=== PATIENT | female | born 1945 | race Caucasian/White ===

== ENCOUNTER 2018-11-07 12:09 | Inpatient (IN) ==
[2018-11-07] MEDS ORDERED: CeFAZolin Syr 2,000MG/20 ML 2,000 MG/20 ML SYRINGE IVPB ONE (12:43)
[2018-11-07] MEDS ORDERED: Famotidine 20 MG/2 ML VIAL IVP ONE (12:44)
[2018-11-07] MEDS ORDERED: Ringers Solution, Lactated 1,000 ML IVC SCH (12:45)
[2018-11-07] MEDS ORDERED: Gabapentin 300 MG CAPSULE PO ONE (12:46)
[2018-11-07] MEDS ORDERED: Acetaminophen IV 1,000 MG/100 ML INFUS..BTL IVPB ONE (12:46)
--- NOTE | 2018-11-07 13:13 | Anesthesia Evaluation PreOp ---
Date of Encounter: 11/07/18 Time of Encounter: 13:10 - Past History Planned Operation: Rt Upper Lobectomy Robotic Assisted Cardiac History: HTN, Hyperlipidemia, Other (CAD) Pulmonary History: Former smoker CRIMINAL INVESTIGATIVE AGENT History: Denies Any Significant HX Other Medical History: Diabetes Type II, Thyroid, Other (Anxiety) Anesthesia History: No Prior Anesthetic Complications Alcohol Use: none Drug use: none Medications and Allergies Advanced Calcium Formula Tab 04/23/16 [History] Amitriptyline 04/23/16 [History] Aspirin 04/23/16 [History] Atenolol 04/23/16 [History] Fish Oil 04/23/16 [History] Januvia 04/23/16 [History] Lisinopril 04/23/16 [History] Preservision Areds 2 Softgel 04/23/16 [History] Simvastatin 04/23/16 [History] Sulfamethoxazole/Trimeth DS [Bactrim DS] 1 each PO BID #14 tablet 12/04/17 [Rx] Allergy/AdvReac Type Severity Reaction Status Date / Time glimepiride AdvReac Rash Verified 12/04/17 16:58 metformin AdvReac See Verified 12/04/17 16:58 Comments pioglitazone AdvReac See Verified 12/04/17 16:58 Comments sitagliptin [From Januvia] AdvReac See Verified 12/04/17 16:58 Comments - Meds/Allergy Pre-op Review Medications Reviewed: Yes Allergies Reviewed: Yes Beta Blockers on Current Med List: Yes (Atenolol today 1000) Anesthesia Results - Labs Laboratory Tests 10/28/18 10/29/18 12:45 17:08 Hgb 14.1 Hct 44.6 Plt Count 320 Sodium 136 Potassium 3.8 BUN 28 H Creatinine 0.89 - Imaging EKG: report reviewed (SR) Anesthesia Exam O2 Sat Height 1.63 m Height 1.63 m Weight 67.585 kg Weight 67.585 kg O2 Sat by Pulse Oximetry 98 Vital Signs Temp Pulse Resp BP Pulse Ox 98.3 F 75 18 149/79 98 11/07/18 12:39 11/07/18 12:39 11/07/18 12:39 11/07/18 12:39 11/07/18 12:39 Height: 5'4 Weight: 149 lbs NPO (# of Hours): MN Pain Scale: 0 - HEENT Pupil (Motor): Pupils equal, EOMI Teeth: Normal Oral Opening: Greater than 3 - CRIMINAL INVESTIGATIVE AGENT LOC: Oriented [employer]AL INVESTIGATIVE AGENT Motor: Normal RUE, Normal LUE, Normal RLE, Normal LLE, Normal Face [employer] INVESTIGATIVE AGENT Sensory: Normal: RUE, LUE, RLE, LLE, Face - Cardiac Rhythm: Regular Murmur: None JVD: No Carotid Bruit: No - Pulmonary Breath Sounds: bilateral Clear Respiratory Effort: Symmetrical Anesthesia Assess/Plan ASA Score: 3 (HTN CAD DM) Level of consciousness: Cooperative, Oriented Anesthetic Plan: General Autologous Blood: No Monitoring Plan: Standard Monitors Recovery Plan: PACU (Discussed GA, agrees to proceed)
[2018-11-07] MEDS ORDERED: Ondansetron 4 MG/2 ML VIAL IVP ONE (13:16)
[2018-11-07] MEDS ORDERED: *HR* Promethazine 25 MG/ML VIAL IVP PRN (13:16)
[2018-11-07] MEDS ORDERED: *HR* OxyCODONE Immed Rel 5 MG TABLET PO PRN (13:16)
[2018-11-07] MEDS ORDERED: *HR* Rocuronium Bromide 50 MG/5 ML VIAL ONE (13:19)
[2018-11-07] MEDS ORDERED: *HR* Succinylcholine 200 MG/10 ML VIAL IVP ONE (13:19)
[2018-11-07] MEDS ORDERED: *HR* FentaNYL (PF) 100 MCG/2 ML VIAL ONE ×2 (13:19→16:21)
[2018-11-07] MEDS ORDERED: *HR* Propofol 200 MG/20 ML VIAL IVP ONE (13:19)
[2018-11-07] MEDS ORDERED: Ondansetron 4 MG/2 ML VIAL ONE (13:19)
[2018-11-07] MEDS ORDERED: Dexamethasone 4 MG/ML VIAL ONE (13:19)
[2018-11-07] MEDS ORDERED: Lidocaine -MPF 2% 2 ML VIAL ONE (13:19)
[2018-11-07] MEDS ORDERED: Ketorolac 30 MG/ML VIAL ONE (13:22)
--- NOTE | 2018-11-07 14:03 | History & Physical Report ---
Date of Encounter: 11/07/18 Time of Encounter: 14:02 24 Hour HP Update - Instructions Instructions: If the History and Physical is less than 30 days old and was completed prior to A.M. admission and or procedure and has NOT been updated on calendar day of procedure please complete this update prior to performing procedure. - Update Patient reports changes in Medical Condition: No Changes in examination, assessment, or condition: No Changes in Medication: No Preop tests/diagnostics Reviewed: Yes Pre-Op MRSA Screen: Negative Surgery Remains Indicated: Yes Consent for Planned Operative Procedure(s) Verified: Yes - Pre-Operative Checklist Preoperative Checklist Indicated: Yes Prophylactic Antibiotic Ordered: Yes Home Medications Include Beta Stephanie: Yes Beta Stephanie Taken Today (Day of Surgery): Yes Beta Stephanie Taken Yesterday (Day Prior to Surgery): Yes Is VTE Prophylaxis Indicated?: Yes
[2018-11-07] MEDS ORDERED: *HR* PHENYLEPHRINE 1,000 MCG/10 ML SYRINGE IVP ONE ×2 (14:43→16:39)
--- NOTE | 2018-11-07 16:39 | Operative Note ---
Date of procedure: 11/07/18 Pre-op diagnosis: c34.11 Post-op diagnosis: same Procedure: staging bronchoscopy, robotic dx wedge, lobectomy, node dissection Anesthesia: GETA Local Anesthetics: 0.5% Sensorcaine HCL SubQ (cc) Surgeon: Pablo Sanchez Was there an triage assistant present: No Estimated blood loss (cc): 25 Specimen: wedge and lobe, nodes [id number] Condition: stable Disposition: PACU Procedure in Detail: The patient was brought to the operating room and placed on the operating room table in the supine position. After undergoing general anesthesia with sequential compressive devices on bilateral lower extremities and perioperative antibiotics on board a staging bronchoscopy was performed on the patient for the first time for this new spiculated solid right upper lobe lung mass demonstrating no endoluminal spread compromise extrinsic compression of the tracheobronchial tree. Patient was placed on the operating room table in the left lateral decubitus position with care to pad all pressure points. He was prepped and draped in the usual sterile fashion. Thoracoscopy ports were placed the da Leonila robot was docked. 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 The vein artery fissure and bronchus then divided in sequence with the Covidien staplers. The right upper lobe was removed. He inferior pulmonary ligament mobilized. Lymph nodes were removed from stations 2, 4, 7, 8, 9 and 10. Hemostasis and pneumostasis were excellent paravertebral nerve blocks were performed 2. A 28-Luxembourgish chest tube placed through the most anterior thoracoscopy incision and secured in place with Ethibond suture. Remaining incisions were closed with 0 Vicryl and 4-0 Monocryl subcuticular stitches with dressings being of Steri-Strips and sterile gauze. Patient was extubated and taken to the recovery room breathing spontaneously and hemodynamically stable.
--- NOTE | 2018-11-07 17:10 | Anesthesia Evaluation Post Op ---
Date of Encounter: 11/07/18 Time of Encounter: 17:15 - Vital Signs Vital Signs: Vital Signs/O2 Sat/Glucose, Most Current Temp Pulse Resp BP Pulse Ox 11/07/18 17:05 97.8 F 64 14 94/60 95 11/07/18 16:55 58 12 97/51 99 11/07/18 16:45 57 12 95/44 99 11/07/18 16:35 97.2 F L 52 12 73/34 99 - Lungs Lungs: Clear Ascult./Percussion - Airway Airway: Non-obstructed - Cardiovascular Regular Rate - Mental Status Mental Status: Alert & Oriented, Answers Appropriately - Pain Pain Scale: 0 - Nausea Vomiting Nausea Vomiting: Not Present - Hydration Hydration: Ice chips - Discharge PostOp Status: Transfer Patient to floor
[2018-11-07] MEDS ORDERED: Ondansetron 4 MG/2 ML VIAL IVP PRN (18:59)
[2018-11-07] MEDS ORDERED: 0.9 % Sodium Chloride 1,000 ML IVC SCH (18:59)
[2018-11-07] MEDS ORDERED: *HR* HYDROcodone/Acet 5/325 mg TABLET PO PRN (18:59)
[2018-11-07] MEDS ORDERED: Naloxone 0.4 MG/ML INJ IVP PRN (18:59)
[2018-11-07] MEDS: Ketorolac 15 MG/ML VIAL IVP SCH ×2 (19:33→23:54)
[2018-11-07] MEDS: Ipratropium/Albuterol Neb 3 ML IH SCH ×2 (20:22→23:21)
[2018-11-07] MEDS ORDERED: Famotidine 20 MG TABLET PO SCH (21:00)
[2018-11-07] MEDS: Sennosides/Docusate Sodium TABLET PO SCH (21:04)
[2018-11-07] MEDS: Gabapentin 300 MG CAPSULE PO SCH (21:11)
[2018-11-07] MEDS: *HR* Heparin 5,000 UNIT/ML VIAL SQ SCH (21:12)
[2018-11-08 02:23] LABS: Hematocrit 36.2 % (35.3-44.9); Hemoglobin 11.6 g/dL (11.5-15.4); Mean Corpuscular Hemoglobin 29.3 pg (28.0-33.3); Mean Corpuscular Volume 91.4 fL (83.0-100.0); Mean Platelet Volume 9.5 fL (9.4-12.4); Platelet Count 236 K/mcL (140-400); Red Blood Count 3.96 M/mcL (3.82-4.97); Red Cell Distribution Width 13.3 % (11.5-14.5); White Blood Count 9.9 K/mcL (4.3-11.1)
[2018-11-08 02:40] LABS: BUN/Creatinine Ratio 21 (6-26); Blood Urea Nitrogen 22 mg/dL (8-23); Calcium 8.1 mg/dL (8.6-10.3); Carbon Dioxide 22 mEq/L (23-29); Chloride 105 mEq/L (98-107); Glucose 205 mg/dL (70-105); Iron < 10 mcg/dL (50-170); Magnesium 1.8 mg/dL (1.6-2.6); Osmolality,Calculated 289 (280-300); Potassium 3.9 mEq/L (3.5-5.1); Sodium 135 mEq/L (136-145); Transferrin 201 mg/dL (203-362); eGFR For African Americans > 60 (> 60); eGFR For Non-African Americans 51 (> 60)
[2018-11-08] MEDS: Ipratropium/Albuterol Neb 3 ML IH SCH ×5 (03:51→20:10)
[2018-11-08] MEDS: Ketorolac 15 MG/ML VIAL IVP SCH ×4 (05:35→23:10)
[2018-11-08] MEDS: *HR* Heparin 5,000 UNIT/ML VIAL SQ SCH ×3 (05:37→23:11)
[2018-11-08] MEDS ORDERED: Iron Sucrose Complex 400 MG in 0.9 % Sodium Chloride 250 ML IVPB ONE (08:36)
--- NOTE | 2018-11-08 08:52 | Cardiothoracic Progress Note ---
Date of Encounter: 11/08/18 Time of Encounter: 08:50 - Assessment and plan (1) Cancer of upper lobe of right lung Current Visit: Yes Status: Acute The assessment and plan as outlined above was discussed with the patient and/or family members who expressed understanding and agreement. All questions were answered. replace mg. clamp chest tube at midnight tonight (2) Iron deficiency anemia due to dietary causes Current Visit: Yes Status: Acute The assessment and plan as outlined above was discussed with the patient and/or family members who expressed understanding and agreement. All questions were answered. replace iron today and tomorrow (3) Essential hypertension Current Visit: Yes Status: Acute The assessment and plan as outlined above was discussed with the patient and/or family members who expressed understanding and agreement. All questions were answered. hold lisinopril (4) NIDDY (non-insulin dependent diabetes mellitus in young) Current Visit: Yes Status: Acute The assessment and plan as outlined above was discussed with the patient and/or family members who expressed understanding and agreement. All questions were answered. resume home medications Vital Signs, Last 4 Hours Temp Pulse Resp BP Pulse Ox 11/08/18 08:03 16 93 11/08/18 07:52 98.0 F 90 18 111/56 94 Oxgyen Flow Rate Oxygen Flow Rate (LPM) 0 Clinical Data, last 8 Hours Output, Chest Tube Drainage 0 Amount [Right Mid-Axillary Chest] Output, Urine Amount 800 Weight 11/06/18 11/07/18 11/08/18 23:59 23:59 23:59 Weight 67.585 kg - Physical Examination General: Conversant, No Apparent Distress, Well developed, Well nourished HEENT: Atraumatic Cardiac: Reg Rate and Rhythm Incision: No signs of infection, Dry/intact dressing Chest tubes: Minimal drainage Lungs: Normal Breath Sounds Neuro: Alert and responsive, No focal deficits noted, Cranial nerves intact, Motor nerves intact Abdomen: Soft, Non-tender - Labs 11/08/18 01:51 11/08/18 01:51 Lab Results, Last 24 hours 11/08/18 11/08/18 01:51 01:51 WBC 9.9 Hgb 11.6 Hct 36.2 Plt Count 236 Sodium 135 L Potassium 3.9 Chloride 105 Carbon Dioxide 22 L BUN 22 Creatinine 1.06 Glucose 205 H Calcium 8.1 L Magnesium 1.8 - Imaging Chest Xray: image reviewed Consult Discharge Plan - Plan Referrals: Brianna Lebron DO [Primary Care Provider] -
[2018-11-08] MEDS: Famotidine 20 MG TABLET PO SCH ×2 (09:50→20:06)
[2018-11-08] MEDS: Gabapentin 300 MG CAPSULE PO SCH ×3 (09:50→20:06)
[2018-11-08] MEDS: Sennosides/Docusate Sodium TABLET PO SCH ×2 (09:50→20:06)
[2018-11-09] MEDS: Ipratropium/Albuterol Neb 3 ML IH SCH ×3 (00:01→07:46)
[2018-11-09] MEDS: *HR* Heparin 5,000 UNIT/ML VIAL SQ SCH (06:17)
[2018-11-09] MEDS: Ketorolac 15 MG/ML VIAL IVP SCH (06:17)
[2018-11-09 07:01] VITALS: BP 121/93
[2018-11-09] MEDS: Sennosides/Docusate Sodium TABLET PO SCH (07:57)
[2018-11-09] MEDS: Gabapentin 300 MG CAPSULE PO SCH (07:57)
[2018-11-09] MEDS: Famotidine 20 MG TABLET PO SCH (07:58)
[2018-11-09] MEDS ORDERED: Iron Sucrose Complex 400 MG in 0.9 % Sodium Chloride 250 ML IVPB ONE (08:36)
--- NOTE | 2018-11-09 09:05 | Discharge Summary ---
Orders not resulted at time of discharge: Pending orders 11/07/18 14:56 Surgical Pathology [PTH] Stat Date of Encounter: 11/09/18 Time of Encounter: 08:31 - Discharge Diagnosis (1) Cancer of upper lobe of right lung Priority: Primary Status: Acute - Hospital Course Hospital course: Ms. Schaeffer is a 73 year old lady with a newly diagnosed spiculated right upper lobe lung lesion. She underwent a robotic right upper lobe resection. Her postoperative course was uncomplicated. The chest tube was removed and she was discharged home on POD#2. - Time Spent with Patient Total time spent providing and/or coordinating discharge services: - Discharge Medications Prescriptions: New Gabapentin [Neurontin] 300 mg PO TID capsule Continued Vit C/E/Zn/Coppr/Lutein/Zeaxan [Preservision Areds 2 Softgel] 2 cap PO DAILY Belcher-3S/Dha/Epa/Fish Oil [Fish Oil 1,200 mg Softgel] 2 each PO DAILY Calcium 500-Vit D3 600 Tablet 2 tab PO DAILY Aspirin [Lo-Dose Aspirin EC] 81 mg PO DAILY Amitriptyline [Elavil] 20 mg PO HS Simvastatin [Zocor] 40 mg PO HS Lisinopril [Zestril] 5 mg PO DAILY Atenolol [Tenormin] 50 mg PO DAILY Bevacizumab [Avastin] 1.25 mg BOTH EYES QMONTH No Action Multivit-Min/Iron/Folic Acid/K [Adults Multivitamin Tablet] 1 each PO DAILY Home Medications: Amitriptyline [Elavil] 20 mg PO HS 11/08/18 [History] Aspirin [Lo-Dose Aspirin EC] 81 mg PO DAILY 11/08/18 [History] Atenolol [Tenormin] 50 mg PO DAILY 11/08/18 [History] Bevacizumab [Avastin] 1.25 mg BOTH EYES QMONTH 11/08/18 [History] Calcium 500-Vit D3 600 Tablet 2 tab PO DAILY 11/08/18 [History] Lisinopril [Zestril] 5 mg PO DAILY 11/08/18 [History] Multivit-Min/Iron/Folic Acid/K [Adults Multivitamin Tablet] 1 each PO DAILY 11/08/18 [History] Belcher-3S/Dha/Epa/Fish Oil [Fish Oil 1,200 mg Softgel] 2 each PO DAILY 11/08/18 [History] Simvastatin [Zocor] 40 mg PO HS 11/08/18 [History] Vit C/E/Zn/Coppr/Lutein/Zeaxan [Preservision Areds 2 Softgel] 2 cap PO DAILY 11/08/18 [History] Gabapentin [Neurontin] 300 mg PO TID capsule 11/09/18 [Rx] Allergies/Adverse Reactions: Allergy/AdvReac Type Severity Reaction Status Date / Time glimepiride AdvReac Rash Verified 12/04/17 16:58 metformin AdvReac See Verified 12/04/17 16:58 Comments pioglitazone AdvReac See Verified 12/04/17 16:58 Comments sitagliptin [From Januvia] AdvReac See Verified 12/04/17 16:58 Comments Date of admission: 11/07/18 18:25 Primary care physician: Brianna Lebron DO Procedure(s) Performed: 1. Robotic right upper lobe resection. Discharging clinician: Gay Flores Anticipated date of discharge: 11/09/18 Physical Examination Vital Signs, Last 4 Hours Temp Pulse Resp BP Pulse Ox 11/09/18 07:45 16 93 11/09/18 06:57 97.8 F 81 18 121/93 93 General: Conversant, No Apparent Distress HEENT: Atraumatic, Normocephaly, Trachea midline Neck: No JVD, Normal carotid pulses Cardiac: Reg Rate and Rhythm, Normal S1 and S2, No Murmur Lungs: Normal Breath Sounds, No Wheeze, Rales, Rhonchi Neuro: Alert and responsive, No focal deficits noted Vascular: Normal capillary refill Skin: No rashes noted on visualized skin Extremities: No Clubbing, No Cyanosis, No Edema - Patient Status Disposition: Home, Self-Care Condition: Good Functional capacity at discharge: independent ambulation Overall status at discharge: patient is progressing back to baseline - Discharge Instructions Follow Up With: Jazlyn Pelletier CNP [Partnered Physician] - 11/15/18 10:35 am Pablo Sanchez MD [Partnered Physician] - 12/02/18 8:30 am - Diet and Activity Activity: no driving for four weeks, no lifting greater than 10 pounds for eight weeks Diet: advance to your usual diet
== END 2018-11-09 10:51 | disposition home or self-care (01) | DRG 165 ==
LOC: SAMDAY 12:09 → 2NNU 18:25
PROVIDERS: ADMIT Thoracic Surgery (Cardiothoracic Vascular Surgery); ATTEND Thoracic Surgery (Cardiothoracic Vascular Surgery)